=== PATIENT | male | born 1965 | race American Indian/Alaskan Native ===

== ENCOUNTER 2021-01-28 17:22 | Observation (INO) | payer OTHER ==
[2021-01-28 19:11] LABS: BUN/Creatinine Ratio 68; Blood Urea Nitrogen 54 mg/dL (9-20); Calcium 9.2 mg/dL (8.4-10.2); Hemolysis Index 8
[2021-01-28 19:12] LABS: Basophils # (Auto) 0.1 K/mm3 (0.0-0.1); Basophils % (Auto) 0.7 % (0.0-1.8); Eosinophils % (Auto) 0.1 % (0.0-4.3); Hemoglobin 10.9 gm/dl (11.8-15.2); Lymphocytes # (Auto) 2.3 K/mm3 (1.2-5.4); Lymphocytes % (Auto) 19.4 % (13.4-35.0); Mean Corpuscular HGB Conc 33 % (32-34); Mean Corpuscular Volume 85 fl (84-94); Monocytes # (Auto) 0.7 K/mm3 (0.0-0.8); Monocytes % (Auto) 5.7 % (0.0-7.3); Platelet Count 259 K/mm3 (140-440); Red Blood Count 3.87 M/mm3 (3.65-5.03); Red Cell Distribution Width 15.4 % (13.2-15.2)
[2021-01-28 19:57] LABS: Alanine Aminotransferase 8 units/L (7-56); Albumin 4.3 g/dL (3.9-5); Bilirubin,Direct < 0.2 mg/dL (0-0.2)
--- NOTE | 2021-01-29 15:11 | Emergency Department Report ---
ED GI Bleed HPI - General Chief complaint: GI Bleed Stated complaint: VOMITIING BLOOD/BLACK STOOL/DIZZY Time Seen by Provider: 01/29/21 15:08 Source: patient, RN notes reviewed Mode of arrival: Ambulatory Limitations: No Limitations - History of Present Illness Initial comments: The patient was evaluated in the emergency department for symptoms described in the history of present illness. He/she was evaluated in the context of the global COVID-19 pandemic, which necessitated consideration that the patient might be at risk for infection with the virus that causes COVID-19. Institutional protocols and algorithms that pertain to the evaluation of p atients at risk for COVID-19 are in a state of rapid change based on information released by regulatory bodies including the CDC and federal and state organizations. These policies and algorithms were followed during the patient's care in the emergency department. Please note that these policies, procedures and recommendations changed on a rapid basis. The patient is a 55-year-old gentleman. He is not known to myself previously. He reports that he recently moved here from [place]. He reports being hospitalized in [place] 2 years ago for an upper GI bleed. He believes that he had an EGD, but he is not certain. He smokes cigarettes, consumes alcohol, occasionally consumes NSAIDs, but denies systemic anticoagulation utilization. He presents to the ER today with a complaint of black tarry stool, and coffee- ground emesis, present since yesterday, constant, does not radiate anywhere, without exacerbating or relieving factors. He denies headache, neck pain, chest pain, abdominal pain, urinary symptoms, loss of taste and smell. He reports this is similar to prior episodes of upper GI bleed. MD complaint: coffee ground emesis, melena -: Gradual Severity scale (0 -10): 0 Quality: painless Consistency: constant Improves with: none Worsens with: none Context: history of GI bleed Associated Symptoms: nausea, vomiting. denies: epistaxis, fever/chills - Related Data Allergies Allergy/AdvReac Type Severity Reaction Status Date / Time No Known Allergies Allergy Verified 01/28/21 18:15 ED Review of Systems ROS: Stated complaint: VOMITIING BLOOD/BLACK STOOL/DIZZY Other details as noted in HPI Constitutional: malaise, weakness. denies: fever Eyes: denies: eye discharge ENT: denies: epistaxis Respiratory: denies: cough Cardiovascular: denies: chest pain Gastrointestinal: nausea, vomiting, melena. denies: abdominal pain, hematochezia Genitourinary: denies: testicular pain Neurological: weakness Psychiatric: anxiety Hematological/Lymphatic: denies: easy bleeding ED Past Medical Hx - Social History Smoking Status: Current Every Day Smoker Substance Use Type: Alcohol ED Physical Exam - General Limitations: No Limitations, Other (Patient is a poor historian) General appearance: alert, anxious - Head Head exam: Present: atraumatic, normocephalic - Eye Eye exam: Present: normal appearance, EOMI. Absent: nystagmus - ENT ENT exam: Present: normal exam, normal orophraynx, mucous membranes moist, normal external ear exam - Neck Neck exam: Present: normal inspection, full ROM. Absent: tenderness, meningismus - Respiratory Respiratory exam: Present: normal lung sounds bilaterally. Absent: respiratory distress, wheezes, rales, rhonchi, stridor, decreased breath sounds - Cardiovascular Cardiovascular Exam: Present: regular rate, normal rhythm, normal heart sounds. Absent: bradycardia, tachycardia, irregular rhythm, systolic murmur, diastolic murmur, rubs, gallop - GI/Abdominal GI/Abdominal exam: Present: soft. Absent: distended, tenderness, guarding, rebound, rigid, pulsatile mass - Rectal Rectal exam: Present: normal inspection, heme (+) stool, black stool, other (Chaperoned by nurse Christina Benitez) - Extremities Exam Extremities exam: Present: normal inspection, full ROM, other (2+ pulses noted in the bilateral upper and lower extremities. There is no palpable cord. negative Homans sign. Muscular compartments are soft. The pelvis is stable.). Absent: pedal edema, calf tenderness - Back Exam Back exam: Present: normal inspection, full ROM. Absent: tenderness, CVA tenderness (R), CVA tenderness (L), paraspinal tenderness, vertebral tenderness - Neurological Exam Neurological exam: Present: alert, other (No facial droop. Tongue midline. Extraocular movements intact bilaterally. Facial sensation intact to light touch in V1, V2, V3 distribution bilaterally. 5 and a 5 strength in 4 extremities. Sensation intact to light touch in 4 extremities.). Absent: motor sensory deficit - Psychiatric Psychiatric exam: Present: normal affect, normal mood - Skin Skin exam: Present: warm, dry, intact, normal color. Absent: rash ED Course Vital Signs 01/28/21 01/29/21 01/29/21 18:06 03:31 15:19 Temperature 98.4 F 98.1 F Pulse Rate 92 H 91 H 68 Respiratory 14 16 16 Rate Blood Pressure 145/89 Blood Pressure 139/90 105/67 [Left] O2 Sat by Pulse 99 100 97 Oximetry - Reevaluation(s) Reevaluation #1: 01/29/21 16:25 Discussed history, physical, pertinent laboratory studies and overall clinical impression with gastroenterology on-call, Dr. Faulkner, who is currently evaluating the patient, agrees with plan of care, indicates GI service can consult on this patient, and follow along. Hospital physician, Dr. Raymond, to admit patient to the medical service. ED Medical Decision Making - Lab Data Result diagrams: 01/29/21 15:27 01/28/21 18:42 Vital Signs 01/28/21 01/29/21 01/29/21 18:06 03:31 15:19 Temperature 98.4 F 98.1 F Pulse Rate 92 H 91 H 68 Respiratory 14 16 16 Rate Blood Pressure 145/89 Blood Pressure 139/90 105/67 [Left] O2 Sat by Pulse 99 100 97 Oximetry Lab Results 01/28/21 01/28/21 01/28/21 Range/Units 18:42 18:42 19:23 WBC 11.7 H (4.5-11.0) K/mm3 RBC 3.87 (3.65-5.03) M/mm3 Hgb 10.9 L (11.8-15.2) gm/dl Hct 33.0 L (35.5-45.6) % MCV 85 (84-94) fl MCH 28 (28-32) pg MCHC 33 (32-34) % RDW 15.4 H (13.2-15.2) % Plt Count 259 (140-440) K/mm3 Lymph % (Auto) 19.4 (13.4-35.0) % [place] % (Auto) 5.7 (0.0-7.3) % Eos % (Auto) 0.1 (0.0-4.3) % Baso % (Auto) 0.7 (0.0-1.8) % Lymph # (Auto) 2.3 (1.2-5.4) K/mm3 [place] # (Auto) 0.7 (0.0-0.8) K/mm3 Eos # (Auto) 0.0 (0.0-0.4) K/mm3 Baso # (Auto) 0.1 (0.0-0.1) K/mm3 Seg Neutrophils % 74.1 H (40.0-70.0) % Seg Neutrophils # 8.7 H (1.8-7.7) K/mm3 PT 13.8 (12.2-14.9) Sec. INR 1.00 (0.87-1.13) APTT 24.0 L (24.2-36.6) Sec. Sodium 142 (137-145) mmol/L Potassium 3.9 (3.6-5.0) mmol/L Chloride 106.2 (98-107) mmol/L Carbon Dioxide 22 (22-30) mmol/L Anion Gap 18 mmol/L BUN 54 H (9-20) mg/dL Creatinine 0.8 (0.8-1.3) mg/dL Estimated GFR > 60 ml/min BUN/Creatinine Ratio 68 % Glucose 101 H (75-100) mg/dL Calcium 9.2 (8.4-10.2) mg/dL Magnesium (1.7-2.3) mg/dL Total Bilirubin (0.1-1.2) mg/dL Direct Bilirubin (0-0.2) mg/dL Indirect Bilirubin mg/dL AST (5-40) units/L ALT (7-56) units/L Alkaline Phosphatase (35-129) units/L Total Creatine Kinase (55-170) units/L Total Protein (6.3-8.2) g/dL Albumin (3.9-5) g/dL Albumin/Globulin Ratio % 01/28/21 01/29/21 01/29/21 Range/Units 19:23 15:27 15:27 WBC (4.5-11.0) K/mm3 RBC (3.65-5.03) M/mm3 Hgb 9.5 L (11.8-15.2) gm/dl Hct 28.6 L (35.5-45.6) % MCV (84-94) fl MCH (28-32) pg MCHC (32-34) % RDW (13.2-15.2) % Plt Count 233 (140-440) K/mm3 Lymph % (Auto) (13.4-35.0) % [place] % (Auto) (0.0-7.3) % Eos % (Auto) (0.0-4.3) % Baso % (Auto) (0.0-1.8) % Lymph # (Auto) (1.2-5.4) K/mm3 [place] # (Auto) (0.0-0.8) K/mm3 Eos # (Auto) (0.0-0.4) K/mm3 Baso # (Auto) (0.0-0.1) K/mm3 Seg Neutrophils % (40.0-70.0) % Seg Neutrophils # (1.8-7.7) K/mm3 PT (12.2-14.9) Sec. INR (0.87-1.13) APTT (24.2-36.6) Sec. Sodium (137-145) mmol/L Potassium (3.6-5.0) mmol/L Chloride (98-107) mmol/L Carbon Dioxide (22-30) mmol/L Anion Gap mmol/L BUN (9-20) mg/dL Creatinine (0.8-1.3) mg/dL Estimated GFR ml/min BUN/Creatinine Ratio % Glucose (75-100) mg/dL Calcium (8.4-10.2) mg/dL Magnesium 2.20 (1.7-2.3) mg/dL Total Bilirubin 0.20 (0.1-1.2) mg/dL Direct Bilirubin < 0.2 (0-0.2) mg/dL Indirect Bilirubin 0.0 mg/dL AST 11 (5-40) units/L ALT 8 (7-56) units/L Alkaline Phosphatase 47 (35-129) units/L Total Creatine Kinase 112 (55-170) units/L Total Protein 6.7 (6.3-8.2) g/dL Albumin 4.3 (3.9-5) g/dL Albumin/Globulin Ratio 1.8 % - EKG Data -: EKG Interpreted by Sc EKG shows normal: sinus rhythm Rate: normal - EKG Data When compared to previous EKG there are: previous EKG unavailable 01/29/21 16:21 Sinus rhythm, 71 bpm. Normal axis, left ventricular hypertrophy, minimal artifact. Abnormal EKG. Not a STEMI. There is no prior for comparison peer - Medical Decision Making Differential diagnosis, including but not limited to: Upper GI bleed, GERD, gastritis, hiatal hernia, varices Assessment and plan: 55-year-old gentleman, with melena, coffee-ground emesis, no pain, black tarry stool, elevated blood urea nitrogen, slightly decreasing hemoglobin, hematocrit over the past 24 hours, with evidence of upper GI bleed. Patient meets criteria for admission and hospitalization secondary to the aforementioned. N.p.o., 2 large-bore IVs, IV fluids, Protonix drip, Protonix push. Pain medicine and nausea medication as needed. Have placed a page to gastroenterology, we are awaiting their call back. I recommend admission to the medical service for the aforementioned. Have discussed this plan of care with the patient. He is amenable with the aforementioned. Critical care attestation.: If time is entered above; I have spent that time in minutes in the direct care of this critically ill patient, excluding procedure time. ED Disposition Clinical Impression: UGIB (upper gastrointestinal bleed), Melena Disposition: -09 OP ADMIT IP TO THIS HOSP Is pt being admited?: Yes Does the pt Need Aspirin: No Condition: Serious Referrals: PRIMARY CARE, [Primary Care Provider] - 3-5 Days Forms: Accompanied Note
[2021-01-29] MEDS ORDERED: ONDANSETRON 4 MG/2 ML INJ IV ONE (15:19)
[2021-01-29] MEDS ORDERED: LACTATED RINGERS 2,000 ML IV ONE (15:20)
[2021-01-29 15:39] LABS: Hematocrit 28.6 % (35.5-45.6); Hemoglobin 9.5 gm/dl (11.8-15.2)
[2021-01-29] MEDS ORDERED: PANTOPRAZOLE 80 MG in SODIUM CHLORIDE 0.9% 100 ML IV SCH (16:00)
[2021-01-29] MEDS: PANTOPRAZOLE 40 MG INJ IV ONE ×2 (16:30→16:40)
--- NOTE | 2021-01-29 17:01 | History and Physical Report ---
History of Present Illness Chief complaint: I have been coughing up blood History of present illness: 55 YO Male with Nicotine Dependence, ETOH Dependence presents to ED for evaluation. Patient reports "I have been coughing up some blood and I got weak and almost passed out". Patient states that he has experienced multiple episodes of coffee-ground emesis, as well as dark tarry stool over the past 1 day. Patient states he has experienced weakness and near syncope. Patient transported to [facility] via private vehicle for further care and evaluation of the aforementioned symptoms. The patient was seen and evaluated in the emergency department. All lab and imaging studies reviewed. Patient found to be Hemoccult positive. Patient diagnosed with upper GI bleed and initiated on GI bleed protocol. Patient placed in observation status and admitted to medical floor. GI team consulted in ED. Patient treated with IV PPI therapy. Patient pending endoscopy as per GI team. Patient denies fever, chills, chest pain, palpitation, productive cough, skin rash, recent ill contacts, ingestion of food/water from new or different sources, or known exposure to COVID-19. No prior admission for review. No medication listed at time of admission for reconciliation. Past History Past Medical History: other (See HPI) Past Surgical History: No surgical history, Other (Reviewed) Social history: smoking, alcohol abuse Family history: hypertension Medications and Allergies Allergies Allergy/AdvReac Type Severity Reaction Status Date / Time No Known Allergies Allergy Verified 01/28/21 18:15 Active Meds: Active Medications Pantoprazole Sodium 80 mg/ (Sodium Chloride) 100 mls @ 10 mls/hr IV DIRECT RAJ Last Admin: 01/29/21 16:31 Dose: 8 mg/hr, 10 mls/hr Documented by: Lactated Ringer's (Lactated Ringers) 2,000 mls @ 999 mls/hr IV BOLUS ONE Stop: 01/29/21 17:20 Last Admin: 01/29/21 16:30 Dose: 999 mls/hr Documented by: Review of Systems Constitutional: no weight loss, no weight gain, no chills, no sweats Ears, nose, mouth and throat: no ear pain, no ear discharge, no nose pain, no nasal congestion Cardiovascular: no chest pain, no palpitations, no edema, no syncope, no lightheadedness Respiratory: no cough, no cough with sputum, no shortness of breath Gastrointestinal: coffee ground emesis, melena, no nausea, no vomiting, no constipation, no hematochezia, no early satiety Genitourinary Male: no hematuria, no flank pain, no discharge, no urinary frequency, no urinary hesitancy Rectal: no pain, no incontinence, no bleeding Musculoskeletal: no neck stiffness, no neck pain Integumentary: no rash, no pruritis, no sores, no wounds, no jaundice, no boils Neurological: no head injury, no transient paralysis, no paralysis, no parathes ias, no tingling, no seizures Psychiatric: no anxiety, no memory loss, no insomnia, no change in appetite, no disorientation Endocrine: no cold intolerance, no excessive thirst, no polyuria, no nocturia Hematologic/Lymphatic: no easy bruising, no easy bleeding, no lymphadenopathy, no lymphedema Allergic/Immunologic: no urticaria, no persistent infections, no anaphylaxis Exam - Constitutional Vitals: Temp Pulse Resp BP Pulse Ox 98.1 F 68 16 105/67 97 01/29/21 15:19 01/29/21 15:19 01/29/21 15:19 01/29/21 15:19 01/29/21 15:19 General appearance: Present: mild distress - EENT Eyes: Present: PERRL ENT: hearing intact, clear oral mucosa - Neck Neck: Present: supple, normal ROM - Respiratory Respiratory effort: normal Respiratory: bilateral: CTA - Cardiovascular Heart Sounds: Present: S1 & S2. Absent: rub, click - Extremities Extremities: pulses symmetrical, No edema Peripheral Pulses: within normal limits - Abdominal General gastrointestinal: Present: soft, non-tender, non-distended, normal bowel sounds Male genitourinary: Present: normal - Integumentary Integumentary: Present: clear, warm, dry - Musculoskeletal Musculoskeletal: gait normal, strength equal bilaterally - Psychiatric Psychiatric: appropriate mood/affect, intact judgment & insight - Neurologic Neurologic: CNII-XII intact, moves all extremities Results - Labs CBC & Chem 7: 01/29/21 15:27 01/28/21 18:42 Labs: Abnormal lab results 01/28/21 01/28/21 01/28/21 Range/Units 18:42 18:42 19:23 WBC 11.7 H (4.5-11.0) K/mm3 Hgb 10.9 L (11.8-15.2) gm/dl Hct 33.0 L (35.5-45.6) % RDW 15.4 H (13.2-15.2) % Seg Neutrophils % 74.1 H (40.0-70.0) % Seg Neutrophils # 8.7 H (1.8-7.7) K/mm3 APTT 24.0 L (24.2-36.6) Sec. BUN 54 H (9-20) mg/dL Glucose 101 H (75-100) mg/dL 01/29/21 Range/Units 15:27 WBC (4.5-11.0) K/mm3 Hgb 9.5 L (11.8-15.2) gm/dl Hct 28.6 L (35.5-45.6) % RDW (13.2-15.2) % Seg Neutrophils % (40.0-70.0) % Seg Neutrophils # (1.8-7.7) K/mm3 APTT (24.2-36.6) Sec. BUN (9-20) mg/dL Glucose (75-100) mg/dL Assessment and Plan - Patient Problems (1) UGIB (upper gastrointestinal bleed) Current Visit: Yes Status: Acute Plan to address problem: GI bleed protocol: GI team consulted, IV PPI therapy, CBC, repeat CBC in a.m., no transfusion at this time, supportive care. (2) Nicotine dependence Current Visit: Yes Status: Acute Qualifiers: Nicotine product type: cigarettes Substance use status: in withdrawal Qualified Code(s): F17.213 - Nicotine dependence, cigarettes, with withdrawal Plan to address problem: Smoke cessation counseling, supportive care, behavior change counseling, +15 minutes (3) Alcohol dependence Current Visit: Yes Status: Acute Plan to address problem: CIWA protocol, thiamine, folic acid, multivitamin, supportive care, behavior change counseling, +15 minutes. Outpatient AA follow-up. (4) DVT prophylaxis Current Visit: Yes Status: Acute Plan to address problem: SCD to bilateral lower extremities while in bed, patient is ambulatory
[2021-01-29] MEDS ORDERED: ONDANSETRON 4 MG/2 ML INJ IV PRN (17:02)
[2021-01-29] MEDS ORDERED: ALBUTEROL 2.5 MG/3 ML NEBU IH PRN (17:02)
[2021-01-29] MEDS ORDERED: ACETAMINOPHEN 325 MG TAB PO PRN (17:02)
[2021-01-29] MEDS ORDERED: LORazepam 2 MG/ML VIAL IV PRN (17:06)
--- NOTE | 2021-01-29 17:12 | Gastroenterology Consultation ---
History of Present Illness - Reason for Consult Consult date: 01/29/21 Melena Requesting physician: DELORES KERNS - History of Present Illness The patient is a 55 yo male who came to the ER for 24 hours of melena. He has had no hematemesis or abdominal pain, and no fevers, chills, or weight loss. He has no hx of GI bleeding, and takes occasional Doans pill. He denies dyspepsia or acid reflux. His only Rx medication is HTN meds. He has had no prior upper or lower endoscopy, or GI surgery. He has no chest pain or shortness of breath. He does have presyncope. Of note he smokes tobacco, and consumes EtOH on a daily basis (at least 3 beers/day). Past History Past Medical History: hypertension Past Surgical History: No surgical history Social history: smoking, alcohol abuse, other (Marijuana) Family history: no significant family history Medications and Allergies Allergies Allergy/AdvReac Type Severity Reaction Status Date / Time No Known Allergies Allergy Verified 01/28/21 18:15 Active Meds: Active Medications Acetaminophen (Acetaminophen 325 Mg Tab) 650 mg PO Q4H PRN PRN Reason: Pain MILD(1-3)/Fever >100.5/FORREST Albuterol (Albuterol 2.5 Mg/3 Ml Nebu) 2.5 mg IH Q4HRT PRN PRN Reason: Shortness Of Breath Pantoprazole Sodium 80 mg/ (Sodium Chloride) 100 mls @ 10 mls/hr IV DIRECT RAJ Last Admin: 01/29/21 16:31 Dose: 8 mg/hr, 10 mls/hr Documented by: Lactated Ringer's (Lactated Ringers) 2,000 mls @ 999 mls/hr IV BOLUS ONE Stop: 01/29/21 17:20 Last Admin: 01/29/21 16:30 Dose: 999 mls/hr Documented by: Lorazepam (Lorazepam 2 Mg/Ml Vial) 2 mg IV Q1HR PRN PRN Reason: CIWA-Ar 8-15 Ondansetron HCl (Ondansetron 4 Mg/2 Ml Inj) 4 mg IV Q8H PRN PRN Reason: Nausea And Vomiting Pantoprazole Sodium (Pantoprazole 40 Mg Inj) 40 mg IV BID RAJ Sodium Chloride (Sodium Chloride 0.9% 10 Ml Flush Syringe) 10 ml IV BID RAJ Sodium Chloride (Sodium Chloride 0.9% 10 Ml Flush Syringe) 10 ml IV PRN PRN PRN Reason: LINE FLUSH I HAVE REVIEWED/RECONCILED MEDICATIONS Review of Systems - Review of Systems All systems: negative (as noted in the HPI.) Exam - Constitutional Vital Signs: Temp Pulse Resp BP Pulse Ox 98.1 F 68 16 105/67 97 01/29/21 15:19 01/29/21 15:19 01/29/21 15:19 01/29/21 15:19 01/29/21 15:19 General appearance: no acute distress - EENT Eyes: PERRL, EOM intact ENT: hearing intact, clear oral mucosa - Neck Neck: supple, normal ROM - Respiratory Respiratory effort: normal Respiratory: bilateral: CTA - Cardiovascular Rhythm: regular Heart Sounds: Present: S1 & S2 Extremities: no ischemia, No edema - Gastrointestinal General gastrointestinal: Present: soft, non-tender, non-distended - Integumentary Integumentary: Present: clear, warm, dry - Neurologic Neurological: alert and oriented x3 - Labs CBC & Chem 7: 01/29/21 15:27 01/28/21 18:42 Lab Results: Laboratory Results - last 24 hr 01/28/21 01/28/21 01/28/21 18:42 18:42 19:23 WBC 11.7 H RBC 3.87 Hgb 10.9 L Hct 33.0 L MCV 85 MCH 28 MCHC 33 RDW 15.4 H Plt Count 259 Lymph % (Auto) 19.4 [place] % (Auto) 5.7 Eos % (Auto) 0.1 Baso % (Auto) 0.7 Lymph # (Auto) 2.3 [place] # (Auto) 0.7 Eos # (Auto) 0.0 Baso # (Auto) 0.1 Seg Neutrophils % 74.1 H Seg Neutrophils # 8.7 H PT 13.8 INR 1.00 APTT 24.0 L Sodium 142 Potassium 3.9 Chloride 106.2 Carbon Dioxide 22 Anion Gap 18 BUN 54 H Creatinine 0.8 Estimated GFR > 60 BUN/Creatinine Ratio 68 Glucose 101 H Calcium 9.2 Magnesium Total Bilirubin Direct Bilirubin Indirect Bilirubin AST ALT Alkaline Phosphatase Total Creatine Kinase Total Protein Albumin Albumin/Globulin Ratio Blood Type Antibody Screen 01/28/21 01/29/21 01/29/21 19:23 15:27 15:27 WBC RBC Hgb 9.5 L Hct 28.6 L MCV MCH MCHC RDW Plt Count 233 Lymph % (Auto) [place] % (Auto) Eos % (Auto) Baso % (Auto) Lymph # (Auto) [place] # (Auto) Eos # (Auto) Baso # (Auto) Seg Neutrophils % Seg Neutrophils # PT INR APTT Sodium Potassium Chloride Carbon Dioxide Anion Gap BUN Creatinine Estimated GFR BUN/Creatinine Ratio Glucose Calcium Magnesium Total Bilirubin 0.20 Direct Bilirubin < 0.2 Indirect Bilirubin 0.0 AST 11 ALT 8 Alkaline Phosphatase 47 Total Creatine Kinase Total Protein 6.7 Albumin 4.3 Albumin/Globulin Ratio 1.8 Blood Type A POSITIVE Antibody Screen Negative 01/29/21 15:27 WBC RBC Hgb Hct MCV MCH MCHC RDW Plt Count Lymph % (Auto) [place] % (Auto) Eos % (Auto) Baso % (Auto) Lymph # (Auto) [place] # (Auto) Eos # (Auto) Baso # (Auto) Seg Neutrophils % Seg Neutrophils # PT INR APTT Sodium Potassium Chloride Carbon Dioxide Anion Gap BUN Creatinine Estimated GFR BUN/Creatinine Ratio Glucose Calcium Magnesium 2.20 Total Bilirubin Direct Bilirubin Indirect Bilirubin AST ALT Alkaline Phosphatase Total Creatine Kinase 112 Total Protein Albumin Albumin/Globulin Ratio Blood Type Antibody Screen Assessment and Plan - Patient Problems (1) Melena Current Visit: Yes Status: Acute Plan to address problem: - The patient likely has PUD from NSAIDs and tobacco; no labs to suggest ELSD. - Will start protonix IV (BID; no indication for gtt). - CIWA protocol, and discontinue NSAIDs. - EGD tomorrow (patient ate lunch today; would defer endoscopy unless significant bleeding).
[2021-01-29] MEDS ORDERED: THIAMINE 100 MG TAB PO ONE ×2 (18:00→23:30)
[2021-01-29] MEDS ORDERED: MULTIVITAMINS ,THERAPEUTIC TAB PO ONE ×2 (18:00→23:30)
[2021-01-29] MEDS ORDERED: PANTOPRAZOLE 40 MG INJ IV SCH (22:00)
[2021-01-29] MEDS: FOLIC ACID 1 MG TAB PO SCH (22:14)
[2021-01-29] MEDS: PANTOPRAZOLE 40 MG INJ IV SCH (22:14)
[2021-01-30 05:44] LABS: Basophils % (Auto) 0.5 % (0.0-1.8); Eosinophils # (Auto) 0.1 K/mm3 (0.0-0.4); Eosinophils % (Auto) 1.2 % (0.0-4.3); Hemoglobin 8.3 gm/dl (11.8-15.2); Mean Corpuscular HGB Conc 33 % (32-34); Mean Corpuscular Volume 86 fl (84-94); Monocytes # (Auto) 0.5 K/mm3 (0.0-0.8); Platelet Count 215 K/mm3 (140-440); Red Cell Distribution Width 15.3 % (13.2-15.2)
[2021-01-30 06:05] LABS: BUN/Creatinine Ratio 22; Blood Urea Nitrogen 20 mg/dL (9-20); Calcium 8.3 mg/dL (8.4-10.2); Hemolysis Index 1
--- NOTE | 2021-01-30 07:34 | Progress Note ---
Assessment and Plan Assessment and plan: (1) UGIB (upper gastrointestinal bleed) Current Visit: Yes Status: Acute Plan to address problem: GI bleed protocol: GI team consulted, IV PPI therapy, CBC, repeat CBC in a.m., no transfusion at this time, supportive care. (2) Nicotine dependence Current Visit: Yes Status: Acute Qualifiers: Nicotine product type: cigarettes Substance use status: in withdrawal Qualified Code(s): F17.213 - Nicotine dependence, cigarettes, with withdrawal Plan to address problem: Smoke cessation counseling, supportive care, behavior change counseling, +15 minutes (3) Alcohol dependence Current Visit: Yes Status: Acute Plan to address problem: CIWA protocol, thiamine, folic acid, multivitamin, supportive care, behavior change counseling, +15 minutes. Outpatient AA follow-up. (4) DVT prophylaxis Current Visit: Yes Status: Acute Plan to address problem: SCD to bilateral lower extremities while in bed, patient is ambulatory 01/30/2021 -Patient admitted for upper GI bleed, patient is on IV Protonix -NSAID induced. Discontinue NSAIDs -Hemoglobin dropped to 8.3, will continue to monitor -Patient was seen by GI and will do EGD today -Continue CIWA protocol, nicotine patch History Interval history: Patient was seen and evaluated this morning Patient does not have any vomiting of blood, or bowel movement today No complaints Hospitalist Physical - Physical exam Narrative exam: Not in cardiopulmonary distress. The patient appeared well nourished and normally developed. Vital signs as documented. Head exam is unremarkable. No scleral icterus . Neck is without jugular venous distension, thyromegaly, or carotid bruits. Lungs are clear to auscultation. Cardiac exam reveals regular rate and Rhythm. Abdominal exam reveals normal bowel sounds, nontender, no organomegaly. Extremities are nonedematous and both femoral and pedal pulses are normal. 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 No focal weakness. - Constitutional Vitals: Temp Pulse Resp BP Pulse Ox 99.3 F 75 18 133/88 99 01/29/21 20:36 01/29/21 20:36 01/29/21 20:36 01/29/21 20:36 01/29/21 20:36 General appearance: Present: mild distress Results - Labs CBC & Chem 7: 01/30/21 04:47 01/30/21 04:47 Labs: Laboratory Last Values WBC 8.1 K/mm3 (4.5-11.0) 01/30/21 04:47 RBC 2.90 M/mm3 (3.65-5.03) L 01/30/21 04:47 Hgb 8.3 gm/dl (11.8-15.2) L 01/30/21 04:47 Hct 25.0 % (35.5-45.6) L 01/30/21 04:47 MCV 86 fl (84-94) 01/30/21 04:47 MCH 29 pg (28-32) 01/30/21 04:47 MCHC 33 % (32-34) 01/30/21 04:47 RDW 15.3 % (13.2-15.2) H 01/30/21 04:47 Plt Count 215 K/mm3 (140-440) 01/30/21 04:47 Lymph % (Auto) 37.0 % (13.4-35.0) H 01/30/21 04:47 [place] % (Auto) 6.0 % (0.0-7.3) 01/30/21 04:47 Eos % (Auto) 1.2 % (0.0-4.3) 01/30/21 04:47 Baso % (Auto) 0.5 % (0.0-1.8) 01/30/21 04:47 Lymph # (Auto) 3.0 K/mm3 (1.2-5.4) 01/30/21 04:47 [place] # (Auto) 0.5 K/mm3 (0.0-0.8) 01/30/21 04:47 Eos # (Auto) 0.1 K/mm3 (0.0-0.4) 01/30/21 04:47 Baso # (Auto) 0.0 K/mm3 (0.0-0.1) 01/30/21 04:47 Seg Neutrophils % 55.3 % (40.0-70.0) 01/30/21 04:47 Seg Neutrophils # 4.5 K/mm3 (1.8-7.7) 01/30/21 04:47 PT 13.8 Sec. (12.2-14.9) 01/28/21 19:23 INR 1.00 (0.87-1.13) 01/28/21 19:23 APTT 24.0 Sec. (24.2-36.6) L 01/28/21 19:23 Sodium 142 mmol/L (137-145) 01/30/21 04:47 Potassium 4.1 mmol/L (3.6-5.0) 01/30/21 04:47 Chloride 108.2 mmol/L (98-107) H 01/30/21 04:47 Carbon Dioxide 28 mmol/L (22-30) 01/30/21 04:47 Anion Gap 10 mmol/L 01/30/21 04:47 BUN 20 mg/dL (9-20) 01/30/21 04:47 Creatinine 0.9 mg/dL (0.8-1.3) 01/30/21 04:47 Estimated GFR > 60 ml/min 01/30/21 04:47 BUN/Creatinine Ratio 22 % 01/30/21 04:47 Glucose 88 mg/dL (75-100) 01/30/21 04:47 Calcium 8.3 mg/dL (8.4-10.2) L 01/30/21 04:47 Magnesium 2.20 mg/dL (1.7-2.3) 01/29/21 15:27 Total Bilirubin 0.20 mg/dL (0.1-1.2) 01/28/21 19:23 Direct Bilirubin < 0.2 mg/dL (0-0.2) 01/28/21 19:23 Indirect Bilirubin 0.0 mg/dL 01/28/21 19:23 AST 11 units/L (5-40) 01/28/21 19:23 ALT 8 units/L (7-56) 01/28/21 19:23 Alkaline Phosphatase 47 units/L (35-129) 01/28/21 19:23 Total Creatine Kinase 112 units/L (55-170) 01/29/21 15:27 Total Protein 6.7 g/dL (6.3-8.2) 01/28/21 19:23 Albumin 4.3 g/dL (3.9-5) 01/28/21 19:23 Albumin/Globulin Ratio 1.8 % 01/28/21 19:23 Blood Type A POSITIVE 01/29/21 15:27 Antibody Screen Negative 01/29/21 15:27 Key/IV: Voiding Method Toilet Active Medications - Current Medications Current Medications: Generic Name Dose Route Start Last Admin Trade Name Freq PRN Reason Stop Dose Admin Acetaminophen 650 mg 01/29/21 17:02 Acetaminophen 325 Mg Tab PO Q4H PRN Pain MILD(1-3)/Fever >100.5/FORREST Albuterol 2.5 mg 01/29/21 17:02 Albuterol 2.5 Mg/3 Ml Nebu IH Q4H PRN Shortness Of Breath Folic Acid 1 mg 01/29/21 18:00 01/29/21 22:14 Folic Acid 1 Mg Tab PO 1 mg QDAY RAJ Administration Lorazepam 2 mg 01/29/21 17:06 01/29/21 23:42 Lorazepam 2 Mg/Ml Vial IV 2 mg Q1H PRN Administration Shadi 8-15 Ondansetron HCl 4 mg 01/29/21 17:02 Ondansetron 4 Mg/2 Ml Inj IV Q8H PRN Nausea And Vomiting Pantoprazole Sodium 40 mg 01/29/21 22:00 01/29/21 22:14 Pantoprazole 40 Mg Inj IV 40 mg BID RAJ Administration Sodium Chloride 10 ml 01/29/21 22:00 01/29/21 22:14 Sodium Chloride 0.9% 10 Ml Flush Syringe IV 10 ml BID RAJ Administration Sodium Chloride 10 ml 01/29/21 17:02 Sodium Chloride 0.9% 10 Ml Flush Syringe IV PRN PRN LINE FLUSH
[2021-01-30] MEDS ORDERED: WATER FOR IRRIG STERILE 1,000 ML BOTTLE ONE (09:49)
[2021-01-30] MEDS ORDERED: WATER FOR IRRIG STERILE 250 ML BOTTLE IR ONE (09:50)
[2021-01-30] MEDS ORDERED: LIDOCAINE MPF (2%) 20 MG/1 ML VIAL 5 ML ONE (09:51)
[2021-01-30] MEDS ORDERED: ONDANSETRON 4 MG/2 ML INJ ONE (09:51)
[2021-01-30] MEDS ORDERED: propofoL 200 MG/20 ML VIAL IV ONE (09:52)
[2021-01-30] MEDS ORDERED: SODIUM CHLORIDE 0.9% 1000 ML 1,000 ML ONE (10:07)
[2021-01-30] MEDS: FOLIC ACID 1 MG TAB PO SCH (10:18)
[2021-01-30] MEDS: PANTOPRAZOLE 40 MG INJ IV SCH ×2 (10:19→21:46)
[2021-01-30] MEDS ORDERED: SODIUM CHLORIDE 0.9% 1000 ML 1,000 ML IV SCH (10:30)
--- NOTE | 2021-01-30 10:30 | Anesthesia Consultation ---
Anesthesia Consult and Med Hx Date of service: 01/30/21 - Airway Anesthetic Teeth Evaluation: Good ROM Head & Neck: Adequate Mental/Hyoid Distance: Adequate Mallampati Class: Class I Intubation Access Assessment: Probably Good - Pulmonary Exam CTA: Yes - Pre-Operative Health Status ASA Pre-Surgery Classification: ASA2, Emergency Proposed Anesthetic Plan: MAC - Pulmonary Hx Smoking: Yes Hx Asthma: No Hx Sleep Apnea: No - Cardiovascular System Hx Hypertension: Yes Hx Heart Attack/AMI: No Hx Angina: No Hx Pacemaker: No Hx Heart Murmur: No - Central Nervous System Hx Neuromuscular Disorder: No - Gastrointestinal Hx Gastroesophageal Reflux Disease: No - Endocrine Hx Renal Disease: No Hx Liver Disease: No Hx Insulin Dependent Diabetes: No Hx Non-Insulin Dependent Diabetes: No Hx Thyroid Disease: No - Other Systems Hx Alcohol Use: Yes (3 Beers daily) Hx Substance Use: Yes (Marijuana- last taken 3 days ago) Hx Obesity: No
--- NOTE | 2021-01-30 10:31 | Anesthesia Day of Surgery ---
Anesthesia Day of Surgery - Day of Surgery Patient Examined: Yes Patient H&P Reviewed: Yes Patient is NPO: Yes Beta Blockers: No Cardiac Clearance: No Pulmonary Clearance: No
[2021-01-30] MEDS ORDERED: SIMETHICONE 40 MG/0.6 ML ORAL DROP 30ML PO ONE (10:40)
--- NOTE | 2021-01-30 10:45 | Post Operative Note ---
Pre-op diagnosis: Melena Post-op diagnosis: other (Ulcer) Findings: 1. Normal duodenum 2. 7mm ulcer in antrum with pigment base; cold biopsy to rule out H pylori 3. No varices/normal esophagus Procedure: EGD with cold biopsy Anesthesia: MAC Surgeon: SCOTT HARE Estimated blood loss: minimal Pathology: list (1. Gastric Antrum) Specimen disposition: to lab Condition: stable Disposition: floor (Recs: 1. Regular diet. 2. Avoid EtOH/tobacco/NSAIDs. 3. Protonix QD therapy on discharge (continue BID while here). 4. MVI therapy.)
--- NOTE | 2021-01-30 11:33 | Operative Report ---
DATE OF SURGERY: 01/30/2021 PROCEDURE PERFORMED: Esophagogastroduodenoscopy with cold biopsy. PREOPERATIVE DIAGNOSIS: Melena. POSTOPERATIVE DIAGNOSIS: Gastric ulcer. ENDOSCOPIST: Mitchel Faulkner MD INSTRUMENT: The Olympus video endoscope. MEDICATIONS: MAC anesthesia by anesthesia services. COMPLICATIONS: No apparent complications. ESTIMATED BLOOD LOSS: Minimal. SPECIMENS: Gastric antrum, rule out H. pylori. IMPLANTS: None. ASSISTANTS: None. CONDITION AT COMPLETION: Stable. DESCRIPTION OF PROCEDURE: The patient was informed of the risks and benefits of the procedure. He signed the informed consent to proceed. He was placed in the left lateral decubitus position. The above sedative medications were given. His vital signs remained stable throughout the procedure. The instrument was advanced from the mouth to the second portion of the duodenum under direct visualization. At that point, the bowel was insufflated and the endoscope was slowly withdrawn. FINDINGS: 1. Normal duodenum. 2. 7 mm ulcer in the antrum of the stomach with pigment at the base, but no visible vessel; cold biopsy taken of the surrounding tissue to rule out H. pylori. 3. No evidence of varices and normal esophagus. RECOMMENDATIONS: 1. Regular diet. 2. The patient should avoid alcohol, tobacco and nonsteroidal anti-inflammatory drugs. 3. Protonix daily therapy on discharge, but continue twice daily therapy while here. 4. Multivitamin therapy. 5. The patient may be discharged when hematocrit is stable either later today or tomorrow morning. TID: [id number] RECEIPT: [id number] VICKI/HARMEET
[2021-01-30] MEDS: MULTIVITAMINS ,THERAPEUTIC TAB PO SCH (13:42)
[2021-01-30 16:35] LABS: Hematocrit 24.9 % (35.5-45.6); Hemoglobin 8.1 gm/dl (11.8-15.2)
--- NOTE | 2021-01-30 19:33 | Post Anesthesia Evaluation ---
- Post Anesthesia Evaluation Patient Participated: Yes Airway Patent: Yes Stable Respiratory Function: Yes Nausea/Vomiting: No Temp > 96.8F: Yes Pain Manageable: Yes Adequeate Hydration: Yes Anesthesia Complications: No Block Receding Appropriately: Not Applicable Patient on Ventilator: No
[2021-01-31 06:08] VITALS: BP 158/71
[2021-01-31 08:09] LABS: Basophils % (Auto) 0.5 % (0.0-1.8); Eosinophils # (Auto) 0.1 K/mm3 (0.0-0.4); Eosinophils % (Auto) 1.2 % (0.0-4.3); Hematocrit 23.9 % (35.5-45.6); Lymphocytes # (Auto) 2.8 K/mm3 (1.2-5.4); Lymphocytes % (Auto) 36.1 % (13.4-35.0); Mean Corpuscular HGB Conc 33 % (32-34); Mean Corpuscular Volume 86 fl (84-94); Monocytes # (Auto) 0.5 K/mm3 (0.0-0.8); Monocytes % (Auto) 6.9 % (0.0-7.3); Platelet Count 197 K/mm3 (140-440); Red Blood Count 2.78 M/mm3 (3.65-5.03); Red Cell Distribution Width 15.3 % (13.2-15.2)
[2021-01-31 08:30] LABS: BUN/Creatinine Ratio 15; Blood Urea Nitrogen 12 mg/dL (9-20); Calcium 8.3 mg/dL (8.4-10.2); Hemolysis Index 1
--- NOTE | 2021-01-31 09:12 | Discharge Summary ---
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 Patient reports "I have been coughing up some blood and I got weak and almost passed out". Patient states that he has experienced multiple episodes of coffee-ground emesis, as well as dark tarry stool over the past 1 day. Patient states he has experienced weakness and near syncope. Patient transported to [facility] via private vehicle for further care and evaluation of the aforementioned symptoms. The patient was seen and evaluated in the emergency department. All lab and imaging studies reviewed. Patient found to be Hemoccult positive. Patient diagnosed with upper GI bleed and initiated on GI bleed protocol. Patient placed in observation status and admitted to medical floor. GI team consulted in ED. Patient treated with IV PPI therapy. Patient pending endoscopy as per GI team. Patient denies fever, chills, chest pain, palpitation, productive cough, skin rash, recent ill contacts, ingestion of food/water from new or different sources, or known exposure to COVID-19. No prior admission for review. No medication listed at time of admission for reconciliation. Hospital course (1) UGIB (upper gastrointestinal bleed) Current Visit: Yes Status: Acute Plan to address problem: GI bleed protocol: GI team consulted, IV PPI therapy, CBC, repeat CBC in a.m., no transfusion at this time, supportive care. (2) Nicotine dependence Current Visit: Yes Status: Acute Qualifiers: Nicotine product type: cigarettes Substance use status: in withdrawal Qualified Code(s): F17.213 - Nicotine dependence, cigarettes, with withdrawal Plan to address problem: Smoke cessation counseling, supportive care, behavior change counseling, +15 minutes (3) Alcohol dependence Current Visit: Yes Status: Acute Plan to address problem: CIWA protocol, thiamine, folic acid, multivitamin, supportive care, behavior change counseling, +15 minutes. Outpatient AA follow-up. (4) DVT prophylaxis Current Visit: Yes Status: Acute Plan to address problem: SCD to bilateral lower extremities while in bed, patient is ambulatory 01/30/2021 -Patient admitted for upper GI bleed, patient is on IV Protonix -NSAID induced. Discontinue NSAIDs -Hemoglobin dropped to 8.3, will continue to monitor -Patient was seen by GI and will do EGD today -Continue CIWA protocol, nicotine patch 01/31/2021; patient does not have any abdominal pain, vomiting of blood or melena. Patient had EGD yesterday and showed antral ulcer. Patient was seen by GI and recommend to discharge the patient with Protonix 40 mg daily. Patient will follow with GI for the result of biopsy. Patient's hemoglobin this morning was 8. Patient was hemodynamically stable and discharged home in stable condition. Disposition: DC-01 TO HOME OR SELFCARE Final Discharge Diagnosis (Prints w/discharge instructions): Upper GI bleed. Antrum ulcer. Acute blood loss anemia Time spent for discharge: 35-minutes - Discharge Diagnoses (1) Ulcer of antrum of stomach Status: Acute (2) Acute blood loss anemia Status: Acute (3) Alcohol dependence Status: Acute (4) Melena Status: Acute (5) UGIB (upper gastrointestinal bleed) Status: Acute Core Measure Documentation - Palliative Care Palliative Care/ Comfort Measures: Not Applicable - Core Measures Any of the following diagnoses?: none Exam - Physical Exam Narrative exam: Not in cardiopulmonary distress. The patient appeared well nourished and normally developed. Vital signs as documented. Head exam is unremarkable. No scleral icterus . Neck is without jugular venous distension, thyromegaly, or carotid bruits. Lungs are clear to auscultation. Cardiac exam reveals regular rate and Rhythm. Abdominal exam reveals normal bowel sounds, nontender, no organomegaly. Extremities are nonedematous and both femoral and pedal pulses are normal. 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 No focal weakness. - Constitutional Vitals: Temp Pulse Resp BP Pulse Ox 98.1 F 57 L 16 158/71 98 01/31/21 05:12 01/31/21 05:12 01/31/21 05:12 01/31/21 05:12 01/31/21 05:12 Plan Activity: no restrictions Weight Bearing Status: Full Weight Bearing Diet: regular Follow up with: PRIMARY CARE, [Primary Care Provider] - 3-5 Days SCOTT HARE MD [Staff Physician] - 14 Days Forms: Accompanied Note Prescriptions: Folic Acid [Folvite] 1 mg PO QDAY #14 tablet Multivitamin Tab [Multiple Vitamin TAB (Theragran)] 1 each PO QDAY #30 tablet Pantoprazole [Protonix TAB] 40 mg PO QDAY #30 tablet
[2021-01-31] MEDS: MULTIVITAMINS ,THERAPEUTIC TAB PO SCH (10:08)
[2021-01-31] MEDS: PANTOPRAZOLE 40 MG INJ IV SCH (10:08)
[2021-01-31] MEDS: FOLIC ACID 1 MG TAB PO SCH (10:08)
--- NOTE | 2021-01-31 14:19 | Post Anesthesia Evaluation ---
- Post Anesthesia Evaluation Patient Participated: Yes Airway Patent: Yes Stable Respiratory Function: Yes Nausea/Vomiting: No Temp > 96.8F: Yes Pain Manageable: Yes Adequeate Hydration: Yes Anesthesia Complications: No Block Receding Appropriately: Not Applicable Patient on Ventilator: No Other Comments: patient is being discharged in the good condition
[2021-01-31] MEDS ORDERED: PANTOPRAZOLE 40 MG TAB PO SCH (16:30)
--- NOTE | 2021-02-02 18:34 | Electrocardiograph Report ---
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
== END 2021-01-31 14:45 | disposition home or self-care (01) ==
LOC: ED 17:22 → 3A 01-29 17:02
PROVIDERS: ADMIT Internal Medicine; ATTEND Internal Medicine
DX: K92.2 Gastrointestinal hemorrhage, unspecified (principal); K92.1 Melena; F10.129 Alcohol abuse with intoxication, unspecified; F17.210 Nicotine dependence, cigarettes, uncomplicated; Z79.899 Other long term (current) drug therapy; Z98.890 Other specified postprocedural states
CPT/HCPCS: 36415; 43239; 80048; 80076; 82550; 83735; 85014; 85018; 85025; 85049; 85610; 85730; 86850; 86900; 86901; 88305; 88342; 93005; 96361; 96365; 96366; 96375; 96376; 99284; 99406; C9113; G0378; J2060; J2405; J2704; J7030; J7120